=== PATIENT | male | born 1960 | race Caucasian/White ===

== ENCOUNTER 2017-05-05 06:24 | Emergency (ER) | payer OTHER ==
[2017-05-05 06:41] VITALS: O2SAT 98
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
[2017-05-05] MEDS ORDERED: Sodium Chloride 0.9% 1000 ML 1,000 ML IV SCH (07:00)
[2017-05-05 07:06] LABS: BASOPHIL % 0.4 % (0.0-0.4); Eosinophil % 8.5 % (0.00-5.0); Granulocytes % 56.4 % (36.0-66.0); Lymphocytes % 23.5 % (24.0-44.0); Mean Cell Volume 91.6 fl (78-100); Mean Corpuscular Hemoglobin 31.9 pg (26-32); Mean Platelet Volume 9.4 fl (6-9.5); Monocytes % 11.2 % (0.0-12.0); Platelet Count 202 K/mm3 (150-450); Red Blood Count 4.54 M/mm3 (4.1-5.6); Red Cell Distribution Width 13.4 % (11.5-14.0); White Blood Count 7.9 K/mm3 (4.0-10.5)
[2017-05-05] MEDS ORDERED: Sodium Chloride 0.9% 1000 ML 1,000 ML ONE (07:07)
[2017-05-05 07:28] LABS: ALBUMIN 3.6 g/dL (3.4-5.0); ALKALINE PHOSPHATASE 91 U/L (46-116); ANION GAP 13.9 MEQ/L (5-15); BLOOD UREA NITROGEN 16 mg/dL (9-20); CHLORIDE 104 mEq/L (98-107); Carbon Dioxide 26.4 mEq/L (21-32); Glucose 114 MG/DL (70-110); LIPASE 131 U/L (73-393); Potassium 3.3 mEq/L (3.5-5.1); SGOT/AST 24 U/L (15-37); SGPT/ALT 35 U/L (12-78); SODIUM 141 mEq/L (136-145); Total Protein 6.9 gm/dL (6.4-8.2)
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
[2017-05-05 09:34] VITALS: BP 140/89; PULSE 70
== END 2017-05-05 09:33 | disposition home or self-care (01) ==
LOC: ED 06:24
DX: S20.219A Contusion of unspecified front wall of thorax, initial encounter (principal); S40.011A Contusion of right shoulder, initial encounter; S30.1XXA Contusion of abdominal wall, initial encounter; V23.4XXA Motorcycle driver injured in collision with car, pick-up truck or van in traffic accident, initial encounter
CPT/HCPCS: 36000; 36415; 70450; 71260; 73030; 73080; 74177; 80053; 82150; 83690; 85025; 96360; 96361; 99284; 99285

== ENCOUNTER 2017-05-11 09:32 | Emergency (ER) | payer OTHER ==
[2017-05-11 09:39] VITALS: O2SAT 96
[2017-05-11] MEDS ORDERED: TORAdol 30 mg Injection ONE (09:43)
[2017-05-11] MEDS ORDERED: TORAdol 30 mg Injection IM ONE (09:43)
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
[2017-05-11 10:38] VITALS: BP 132/93; PULSE 59
== END 2017-05-11 10:49 | disposition home or self-care (01) ==
LOC: ED 09:32
DX: S22.31XA Fracture of one rib, right side, initial encounter for closed fracture (principal); V89.2XXS Person injured in unspecified motor-vehicle accident, traffic, sequela
CPT/HCPCS: 71020; 71100; 96372; 99284; J1885